=== PATIENT | male | born 1940 | race Caucasian/White ===

== ENCOUNTER 2017-07-09 11:32 | Emergency (ER) | payer MEDICARE ==
[~2017-07-09] VITALS: Ht 172.7 cm; Wt 77.0 kg
[2017-07-09 11:34] VITALS: BP 143/76
== END 2017-07-09 15:12 | disposition left against medical advice (07) ==
LOC: ER 12:02
DX: R55 Syncope and collapse (principal); R53.1 Weakness; I10 Essential (primary) hypertension
CPT/HCPCS: 99283